=== PATIENT | male | born 1955 | race Caucasian/White ===

== ENCOUNTER 2018-06-30 17:40 | Observation (INO) ==
[2018-06-30] MEDS ORDERED: 0.9 % Sodium Chloride 1,000 ML IVC ONE (17:53)
--- NOTE | 2018-06-30 18:00 | Emergency Department Note ---
Disposition Clinical Impression: Influenza Community acquired pneumonia Qualifiers: Laterality: right Lung location: lower lobe of lung Qualified Code(s): J18.1 - Lobar pneumonia, unspecified organism Disposition: Admitted As Inpatient Condition: Fair Time of Disposition: 19:21 General Adult HPI - General Stated complaint: Body aches,chills,fever,cough,congestion Time Seen by Provider: 06/30/18 17:44 Source: patient, family Limitations: no limitations Nursing Notes Reviewed: Yes Vital Signs Reviewed: Yes - History of Present Illness HPI Narrative: 62yo male presents from home with girlfriend bedside for evaluation of a 3 day history of cough, CP with cough, myalgia, rigors, sweats, weakness. Fever at home was subjective to palpation. Cough productive with phlegm. 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 PMH: Remote esophageal cancer, hypothyroidism, atrial fibrillation status post ablation with no need for controlling medications or anticoagulant. Habits: Previous everyday smoker. Patient quit 2 weeks ago. ROS: Pos: as above Neg: nausea, vomiting, chest pain, palpitation, dyspnea, abdominal pain, diarrhea, constipation, dysuria Pain Scale: 0 - Related Data Allergies Allergy/AdvReac Type Severity Reaction Status Date / Time Penicillins Allergy Rash Verified 06/30/18 18:34 All systems ED: reviewed and negative except as stated. Review of Systems: As Per HPI Past Medical History - Past Medical History Medical history: Reports: cancer, coronary artery disease Psychiatric history: Reports: no psych history - Social History Smoking Status: Current some day smoker Smokeless Tobacco Status: Yes Alcohol use: Reports: none Drug use: Reports: none Physical Exam Vital Signs Reviewed General: Patient is alert, oriented, and in no acute distress. Head: atraumatic, normocephalic Eye: normal appearance, PERRL, EOMI, no scleral icterus, no conjunctival injection ENT: mucous membranes moist, normal external ear exam Neck: normal inspection, trachea midline, full ROM Chest: normal inspection, symmetric chest rise Respiratory: Good respiratory effort. Bilateral breath sounds are clear without wheezing, crackles, or rhonchi. Cardiovascular: Regular rate and rhythm. No clicks, rubs, gallops, or murmors. Normal heart sounds. Abdomen: Bowel sounds present normoactive. Abdomen is soft, nondistended, and nontender. No guarding or rebound. Musculoskeletal: Spontaneously moving all extremities. Skin: warm, dry, intact. Neuro: GCS 15. No focal neurologic deficits observed. Psych: Patient's affect is appropriate for situation. - General Limitations: no limitations General appearance: alert, in no apparent distress Course Course Narrative: Patient is tachypneic, tachycardic, and febrile on exam. Tylenol, fluids, chest x-ray, urinalysis, labs including lactate and blood cultures, EKG and troponin. EKG dated 06/30/2018 at 18:06 interpreted as sinus rhythm with rate of 92. W[place] 138, QRS 74, QTC 45. Normal axis. Nonspecific ST-T changes. No previous EKG for comparison. Chest x-ray read by radiology as no acute process. On my evaluation as well as my attendings, concern for right lower lobe versus right posterior lobe pneumonia. Given patient's constellation of symptoms and clinical presentation, will begin empiric treatment for community-acquired pneumonia. Serum hematology is unremarkable. Serum chemistries unremarkable. EKG shows no acute ischemic changes. Rapid influenza is positive. Even concern for community-acquired pneumonia, will cover with vancomycin and azithromycin to ensure empiric coverage for post viral streptococcal pneumonia. Discussed the above with the patient. He is agreeable to admission for his pneumonia and influenza. Discussed the above with the admitting hospitalist, Dr. Mckeon. He agrees to accept the patient for continued evaluation and management. Recommendation at this time is adding ceftriaxone; 2 g ceftriaxone IV ordered. Vital Signs Temperature 100.1 F H 06/30/18 17:44 Pulse Rate 103 06/30/18 17:44 Respiratory Rate 20 06/30/18 17:44 Blood Pressure 136/97 06/30/18 17:44 O2 Sat by Pulse Oximetry 96 06/30/18 17:44 Temperature 100.1 F H 06/30/18 17:44 Pulse Rate 79 06/30/18 18:33 Respiratory Rate 24 06/30/18 18:33 Blood Pressure 176/86 06/30/18 18:33 O2 Sat by Pulse Oximetry 99 06/30/18 18:33 Oxygen Delivery Oxygen Delivery Room Air Medical Decision Making - Lab Data Result diagrams: 06/30/18 18:09 06/30/18 18:09 Lab Results 06/30/18 06/30/18 06/30/18 Range/Units 18:09 18:09 18:12 WBC 6.7 (4.3-11.1) K/mcL RBC 5.43 (4.19-5.50) M/mcL Hgb 16.6 (12.9-16.9) g/dL Hct 50.5 H (37.5-50.1) % MCV 93.0 (83.0-100.0) fL MCH 30.6 (28.0-33.3) pg MCHC 32.9 (31.6-35.5) g/dL RDW 12.3 (11.5-14.5) % Plt Count 166 (140-400) K/mcL MPV 9.1 L (9.4-12.4) fL Immature Gran % 0.3 (0-4) % Seg Neutrophils % 79.2 % Lymphocytes % 9.9 % Monocytes % 9.8 % Eosinophils % 0.3 % Basophils % 0.5 % Neutrophils # 5.3 (1.6-8.9) K/mcL Lymphocytes # 0.7 (0.6-4.6) K/mcL Monocytes # 0.7 (0.0-1.3) K/mcL Eosinophils # 0.0 (0.0-0.6) K/mcL Basophils # 0.0 (0.0-0.2) K/mcL Sodium 136 (136-145) mEq/L Potassium 4.2 (3.5-5.1) mEq/L Chloride 101 (98-107) mEq/L Carbon Dioxide 26 (23-29) mEq/L BUN 18 (8-23) mg/dL Creatinine 1.21 (0.70-1.30) mg/dL Est GFR ( Amer) > 60 (> 60) Est GFR (Non-Af Amer) > 60 (> 60) BUN/Creatinine Ratio 15 (6-26) Glucose 94 (70-105) mg/dL Calculated Osmolality 284 (280-300) Lactic Acid 1.1 (0.5-2.2) mmol/L Calcium 9.7 (8.6-10.3) mg/dL Magnesium 1.8 (1.6-2.6) mg/dL Total Bilirubin 0.4 (0.3-1.0) mg/dL Direct Bilirubin 0.1 (0.0-0.2) mg/dL Indirect Bilirubin 0.3 (0.0-1.2) mg/dL AST 21 (13-39) Units/L ALT 19 (7-52) Units/L Alkaline Phosphatase 67 (34-104) Units/L Troponin I < 0.03 (< 0.04) ng/mL Serum Total Protein 7.3 (6.4-8.9) g/dL Albumin 4.5 (3.5-5.7) g/dL Globulin 2.8 (2.4-3.5) g/dL Albumin/Globulin Ratio 1.6 (1.1-2.2) Urine Color (Yellow) Urine Clarity (Clear) Urine pH (5.0-8.0) pH Units Ur Specific [place] (1.010-1.025) Urine Protein (Neg-Trace) mg/dL Urine Glucose (UA) (Normal) mg/dL Urine Ketones (Negative) mg/dL Urine Blood (Negative) Urine Nitrite (Negative) Urine Bilirubin (Negative) Urine Urobilinogen (Normal) mg/dL Ur Leukocyte Esterase (Negative) Ur Culture Indicated? (NO) 06/30/18 Range/Units 19:35 WBC (4.3-11.1) K/mcL RBC (4.19-5.50) M/mcL Hgb (12.9-16.9) g/dL Hct (37.5-50.1) % MCV (83.0-100.0) fL MCH (28.0-33.3) pg MCHC (31.6-35.5) g/dL RDW (11.5-14.5) % Plt Count (140-400) K/mcL MPV (9.4-12.4) fL Immature Gran % (0-4) % Seg Neutrophils % % Lymphocytes % % Monocytes % % Eosinophils % % Basophils % % Neutrophils # (1.6-8.9) K/mcL Lymphocytes # (0.6-4.6) K/mcL Monocytes # (0.0-1.3) K/mcL Eosinophils # (0.0-0.6) K/mcL Basophils # (0.0-0.2) K/mcL Sodium (136-145) mEq/L Potassium (3.5-5.1) mEq/L Chloride (98-107) mEq/L Carbon Dioxide (23-29) mEq/L BUN (8-23) mg/dL Creatinine (0.70-1.30) mg/dL Est GFR ( Amer) (> 60) Est GFR (Non-Af Amer) (> 60) BUN/Creatinine Ratio (6-26) Glucose (70-105) mg/dL Calculated Osmolality (280-300) Lactic Acid (0.5-2.2) mmol/L Calcium (8.6-10.3) mg/dL Magnesium (1.6-2.6) mg/dL Total Bilirubin (0.3-1.0) mg/dL Direct Bilirubin (0.0-0.2) mg/dL Indirect Bilirubin (0.0-1.2) mg/dL AST (13-39) Units/L ALT (7-52) Units/L Alkaline Phosphatase (34-104) Units/L Troponin I (< 0.04) ng/mL Serum Total Protein (6.4-8.9) g/dL Albumin (3.5-5.7) g/dL Globulin (2.4-3.5) g/dL Albumin/Globulin Ratio (1.1-2.2) Urine Color Yellow (Yellow) Urine Clarity Clear (Clear) Urine pH 5.5 (5.0-8.0) pH Units Ur Specific [place] 1.020 (1.010-1.025) Urine Protein Negative (Neg-Trace) mg/dL Urine Glucose (UA) Normal (Normal) mg/dL Urine Ketones 15 H (Negative) mg/dL Urine Blood Negative (Negative) Urine Nitrite Negative (Negative) Urine Bilirubin Negative (Negative) Urine Urobilinogen Normal (Normal) mg/dL Ur Leukocyte Esterase Negative (Negative) Ur Culture Indicated? NO (NO)
[2018-06-30 18:24] LABS: Basophils % 0.5 %; Eosinophils % 0.3 %; Hematocrit 50.5 % (37.5-50.1); Hemoglobin 16.6 g/dL (12.9-16.9); Immature Granulocytes % 0.3 % (0-4); Lymphocytes # 0.7 K/mcL (0.6-4.6); Lymphocytes % 9.9 %; Mean Corpuscular HGB Conc 32.9 g/dL (31.6-35.5); Mean Corpuscular Hemoglobin 30.6 pg (28.0-33.3); Mean Platelet Volume 9.1 fL (9.4-12.4); Monocytes # 0.7 K/mcL (0.0-1.3); Monocytes % 9.8 %; Neutrophils # 5.3 K/mcL (1.6-8.9); Platelet Count 166 K/mcL (140-400); Red Blood Count 5.43 M/mcL (4.19-5.50); Red Cell Distribution Width 12.3 % (11.5-14.5); Segmented Neutrophils % 79.2 %
[2018-06-30 18:46] LABS: Alanine Aminotransferase 19 Units/L (7-52); Albumin 4.5 g/dL (3.5-5.7); Albumin/Globulin Ratio 1.6 (1.1-2.2); Alkaline Phosphatase 67 Units/L (34-104); Aspartate Amino Transferase 21 Units/L (13-39); BUN/Creatinine Ratio 15 (6-26); Bilirubin,Direct 0.1 mg/dL (0.0-0.2); Bilirubin,Indirect 0.3 mg/dL (0.0-1.2); Bilirubin,Total 0.4 mg/dL (0.3-1.0); Blood Urea Nitrogen 18 mg/dL (8-23); Calcium 9.7 mg/dL (8.6-10.3); Carbon Dioxide 26 mEq/L (23-29); Chloride 101 mEq/L (98-107); Globulin 2.8 g/dL (2.4-3.5); Glucose 94 mg/dL (70-105); Magnesium 1.8 mg/dL (1.6-2.6); Osmolality,Calculated 284 (280-300); Potassium 4.2 mEq/L (3.5-5.1); Sodium 136 mEq/L (136-145); Total Protein 7.3 g/dL (6.4-8.9); Troponin I < 0.03 ng/mL (< 0.04); eGFR For Non-African Americans > 60 (> 60)
[2018-06-30] MEDS ORDERED: Azithromycin 500 MG in D5% in Water 250 ML IVPB ONE (19:16)
--- NOTE | 2018-06-30 19:27 | Emergency Department Note ---
Disposition Clinical Impression: Influenza Community acquired pneumonia Qualifiers: Laterality: right Lung location: lower lobe of lung Qualified Code(s): J18.1 - Lobar pneumonia, unspecified organism Disposition: Admitted As Inpatient Condition: Fair Referrals: Paulo Lora MD [Primary Care Provider] - General Adult HPI - General Chief complaint: ED Fever Stated complaint: Body aches,chills,fever,cough,congestion Time Seen by Provider: 06/30/18 17:44 Source: patient, family Limitations: no limitations - History of Present Illness Pain Scale: 0 - Related Data Allergies Allergy/AdvReac Type Severity Reaction Status Date / Time Penicillins Allergy Rash Verified 06/30/18 18:34 Past Medical History - Past Medical History Medical history: Reports: cancer, coronary artery disease Psychiatric history: Reports: no psych history - Social History Smoking Status: Current some day smoker Smokeless Tobacco Status: Yes Alcohol use: Reports: none Drug use: Reports: none Physical Exam - General Limitations: no limitations General appearance: alert, in no apparent distress Course Vital Signs Temperature 100.1 F H 06/30/18 17:44 Pulse Rate 103 06/30/18 17:44 Respiratory Rate 20 06/30/18 17:44 Blood Pressure 136/97 06/30/18 17:44 O2 Sat by Pulse Oximetry 96 06/30/18 17:44 Temperature 100.1 F H 06/30/18 17:44 Pulse Rate 79 06/30/18 18:33 Respiratory Rate 24 06/30/18 18:33 Blood Pressure 176/86 06/30/18 18:33 O2 Sat by Pulse Oximetry 99 06/30/18 18:33 Oxygen Delivery Oxygen Delivery Room Air Medical Decision Making - Lab Data Result diagrams: 06/30/18 18:09 06/30/18 18:09 Lab Results 06/30/18 06/30/18 06/30/18 Range/Units 18:09 18:09 18:12 WBC 6.7 (4.3-11.1) K/mcL RBC 5.43 (4.19-5.50) M/mcL Hgb 16.6 (12.9-16.9) g/dL Hct 50.5 H (37.5-50.1) % MCV 93.0 (83.0-100.0) fL MCH 30.6 (28.0-33.3) pg MCHC 32.9 (31.6-35.5) g/dL RDW 12.3 (11.5-14.5) % Plt Count 166 (140-400) K/mcL MPV 9.1 L (9.4-12.4) fL Immature Gran % 0.3 (0-4) % Seg Neutrophils % 79.2 % Lymphocytes % 9.9 % Monocytes % 9.8 % Eosinophils % 0.3 % Basophils % 0.5 % Neutrophils # 5.3 (1.6-8.9) K/mcL Lymphocytes # 0.7 (0.6-4.6) K/mcL Monocytes # 0.7 (0.0-1.3) K/mcL Eosinophils # 0.0 (0.0-0.6) K/mcL Basophils # 0.0 (0.0-0.2) K/mcL Sodium 136 (136-145) mEq/L Potassium 4.2 (3.5-5.1) mEq/L Chloride 101 (98-107) mEq/L Carbon Dioxide 26 (23-29) mEq/L BUN 18 (8-23) mg/dL Creatinine 1.21 (0.70-1.30) mg/dL Est GFR ( Amer) > 60 (> 60) Est GFR (Non-Af Amer) > 60 (> 60) BUN/Creatinine Ratio 15 (6-26) Glucose 94 (70-105) mg/dL Calculated Osmolality 284 (280-300) Lactic Acid 1.1 (0.5-2.2) mmol/L Calcium 9.7 (8.6-10.3) mg/dL Magnesium 1.8 (1.6-2.6) mg/dL Total Bilirubin 0.4 (0.3-1.0) mg/dL Direct Bilirubin 0.1 (0.0-0.2) mg/dL Indirect Bilirubin 0.3 (0.0-1.2) mg/dL AST 21 (13-39) Units/L ALT 19 (7-52) Units/L Alkaline Phosphatase 67 (34-104) Units/L Troponin I < 0.03 (< 0.04) ng/mL Serum Total Protein 7.3 (6.4-8.9) g/dL Albumin 4.5 (3.5-5.7) g/dL Globulin 2.8 (2.4-3.5) g/dL Albumin/Globulin Ratio 1.6 (1.1-2.2) Attestation Statement - Attestation Attestation: I examined this patient and my medical decision-making was reviewed with the Resident Physician. I agree with the documented findings, disposition and treat ment plan as described except to the extent set forth below. 62 year old male presents to the ED with complaints of fever chills and cough and appears to be influenza A (+). Patinet CXR is read as negtive, however, on my personal read there are appears to be a consolidation in the RLL. With the consideration that he just stopped smoking about 2 weeks ago and has poor lung function because of it. He is not hypoxic although presented with tachycardia and a temp of 100.1F. We will admit to medicine.
[2018-06-30] MEDS ORDERED: cefTRIAXone 2,000 MG in 0.9 % Sodium Chloride Mini Bag 100 ML IVPB ONE (19:35)
[2018-06-30 19:45] LABS: Bilirubin,Urine Negative (Negative); Blood,Urine Negative (Negative); Clarity,Urine Clear (Clear); Color,Urine Yellow (Yellow); Glucose,Urine (UA) Normal (Normal); Ketones,Urine 15 mg/dL (Negative); Leukocyte Esterase,Urine Negative (Negative); Nitrite,Urine Negative (Negative); PH,Urine 5.5 pH Units (5.0-8.0); Protein,Urine Negative (Neg-Trace); Urobilinogen,Urine Normal (Normal)
[2018-06-30] MEDS ORDERED: Naloxone 0.4 MG/ML INJ IVP PRN (21:33)
--- NOTE | 2018-06-30 21:46 | Internal Med History&Physical ---
<Angela Arriola - Last Filed: 07/01/18 02:36> Date of Encounter: 07/01/18 Time of Encounter: 21:40 Internal Medicine - H&P: HPI Chief complaint: Cough Admitted From: Emergency Dept Plans for Post Hospital Care: Home History of present illness: Mr. Gates is a 62 year old male presenting from home to ED with complaint of productive cough, fever, chills, arthralgia, myalgia for 3 days. He has a past medical history of hypothyroidism on [place] Thyroid 180 mg qd, esophageal cancer, recent smoking history, he quit 1-1/2 weeks ago and is currently on Wellbutrin 150 mg daily, esophageal cancer, atrial fibrillation status post ablation and is not requiring rate control or anticoagulation. 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 He admits to shortness of breath with exertion however not at rest, as well as feeling feverish, diaphoretic, arthralgia, myalgia and he has chronic bilateral lower extremity paresthesias secondary to chemotherapy and radiation for esophageal cancer. He denies any nausea, vomiting, headache, lightheadedness, vision or hearing changes, ear pain, dysphasia, pharyngitis, chest pain, pleuritic chest pain, abdominal pain, diarrhea, constipation, hematochezia, melena, dysuria, hematuria, calf pain, lower extremity edema. On presentation, SIRS criteria met include being febrile at 100.1, tachycardic at 103 and tachypneic at 20. He was satting 96% on room air. He does not have an elevated white count, in fact his labs are all within normal limits besides ketones in the urine. LFTs within normal limits, troponins were negative. Clinically he does appear to have a right lower lobe pneumonia. Chest XR suggestive of right pleural effusion. Patient also tested positive for influenza a. He is status post 1 L normal saline, 75 mg Tamiflu, 2 g ceftriaxone, 500 mg azithromycin, and vancomycin. He has also had 1 g of Tylenol. Past Med Surg Social Fam HX - Past Medical History Medical history: atrial fibrillation, cancer, thyroid disease Psychiatric history: no psych history - Past Surgical History Additional surgical history: cardac ablasion - Social History Smoking Status: Former smoker Smokeless Tobacco Status: Yes Alcohol use: none Drug use: none Occupational status: employed Current living situation: Home - Independent Activity Level: Independent ambulation Recent Out of Country Travel Within the Last 8 Weeks: No Exposure or Possible Exposure to Illness During Travel: No - Family History Father Age: 59 Living Status: Hx Family Cancer: Yes (bone) Daughter Age: 32 Living Status: Hx Family Cardiac Disorders: Yes (CHF) Internal Medicine - H&P: Meds BuPROPion SR (12 HR) [Wellbutrin SR] 150 mg PO DAILY 06/30/18 [History] Thyroid,Pork [[place] Thyroid] 180 mg PO DAILY 06/30/18 [History] Allergy/AdvReac Type Severity Reaction Status Date / Time Penicillins Allergy Rash Verified 06/30/18 18:34 All Systems PM: A 10-system review of systems was performed and is negative for pertinent findings except as documented above in the HPI. - Constitutional Constitutional: chills, excessive sweating, fatigue, fever(s) - EENT Eyes: no blurry vision Ears: no ear pain Nose, mouth and throat: no dysphagia, no nasal congestion, no sore throat - Cardiovascular Cardiovascular ROS IM: diaphoresis, dyspnea on exertion, no chest pain, no dyspnea, no edema, no irregular heart rhythm - Respiratory Respiratory: cough, dyspnea on exertion, chest congestion, pain with cough, no dyspnea, no hemoptysis, no pain on inspiration - Gastrointestinal Gastrointestinal: no abdominal pain, no change in bowel habits, no constipation, no diarrhea, no heartburn, no hematochezia, no melena, no nausea, no vomiting - Genitourinary Genitourinary ROS male: no dysuria - Musculoskeletal Musculoskeletal ROS IM: arthralgias, myalgias, tingling - Neurological Neurological ROS: paresthesias, no dizziness, no focal weakness, no headache(s) - Psychiatric Psychiatric: no anxiety, no depression - Endocrine Endocrine IM: fatigue - Constitutional Vitals: Temp Pulse Resp BP Pulse Ox 99.8 F H 85 16 133/75 93 06/30/18 21:31 06/30/18 21:31 06/30/18 21:31 06/30/18 21:31 06/30/18 21:31 Exam: Gen.: Vitals noted. No acute distress. AAOx3, resting comfortably in bed, diaphoretic. HEENT: PERRL/EOMI, tympanic membranes clear, oropharynx clear, Normocephalic, atraumatic, MMM Neck: Supple. No adenopathy. Trachea midline. No cervical midline tenderness. Cardiac: RRR, no murmur, +S1/S2, No BLE edema, no JVD, radial and dorsal pedis pulses 3+ and symmetrical, normal capillary refill. Pulmonary: Diffuse expiratory wheezes bilaterally, no rales or rhonchi, equal chest expansion, unlabored breathing Abdomen: soft, nontender, BS noted, no guarding, no palpable HSM Back: Nontender throughout. Skin: warm and dry, no visible lesions. MSK: ROM intact, no joint swelling noted, gait no assessed while in bed. Non tender calf or clubbing Neuro: A&Ox3, moves all extremities, no focal deficits, sensation intact, CN2-12 intact Psych: Appropriate mood and behavior, AOx3 Internal Med - H&P Results - Labs CBC & Chem 7: 07/01/18 00:09 07/01/18 00:09 Labs: Short CBC 06/30/18 Range/Units 18:09 WBC 6.7 (4.3-11.1) K/mcL Hgb 16.6 (12.9-16.9) g/dL Hct 50.5 H (37.5-50.1) % Plt Count 166 (140-400) K/mcL Neutrophils # 5.3 (1.6-8.9) K/mcL BMP 06/30/18 18:09 Sodium 136 Potassium 4.2 Chloride 101 Carbon Dioxide 26 BUN 18 Creatinine 1.21 Glucose 94 Calcium 9.7 Cardiac Enzymes 06/30/18 Range/Units 18:09 Troponin I < 0.03 (< 0.04) ng/mL Liver Function 06/30/18 Range/Units 18:09 Total Bilirubin 0.4 (0.3-1.0) mg/dL Direct Bilirubin 0.1 (0.0-0.2) mg/dL AST 21 (13-39) Units/L ALT 19 (7-52) Units/L Alkaline Phosphatase 67 (34-104) Units/L Albumin 4.5 (3.5-5.7) g/dL Urine 06/30/18 Range/Units 19:35 Urine Color Yellow (Yellow) Urine Clarity Clear (Clear) Urine pH 5.5 (5.0-8.0) pH Units Ur Specific [place] 1.020 (1.010-1.025) Urine Protein Negative (Neg-Trace) mg/dL Urine Glucose (UA) Normal (Normal) mg/dL - Assessment and Plan (1) Influenza Current Visit: Yes Status: Acute Assessment and plan: Patient presented with 3 days of cough, fevers, chills myalgias, arthralgias Positive for influenza A Continue Tamiflu for 5 days total Duoneb q6 and albuterol q2 PRN Solumedrol 80 mg q8 Respiratory support as needed. (2) Community acquired pneumonia Current Visit: Yes Status: Acute Assessment and plan: Patient presented with productive cough, fever, chills, myalgias, arthralgias Chest x-ray read as negative however clinical suspicion for RLL pneumonia, also appears to have a right pleural effusion Possible COPD exacerbation, significant smoking history but no prior pulmonary function testing or formal diagnosis Continue rocephin and azithromycin for antibiotic coverage Continue pulse ox monitoring Recheck CBC and BMP in the morning Qualifiers: Laterality: right Lung location: lower lobe of lung Qualified Code(s): J18.1 - Lobar pneumonia, unspecified organism (3) Pleural effusion Current Visit: Yes Status: Suspected Assessment and plan: Suspect pleural effusion on right Most likely parapneumonic however patient does have history of malignancy Further evaluation with right decubitus chest XR and consider CT chest (4) Hypothyroidism Current Visit: Yes Status: Acute Assessment and plan: History of hypothyroidism Continue home med [place] Thyroid 180 mg daily Qualifiers: Hypothyroidism type: unspecified Qualified Code(s): E03.9 - Hypothyroidism, unspecified (5) Tobacco abuse Current Visit: Yes Status: Acute Assessment and plan: History of tobacco abuse Quit smoking 1.5 weeks ago Continue Wellbutrin 150 mg daily Currently using chewing tobacco (6) DVT prophylaxis Current Visit: Yes Status: Acute Assessment and plan: Subcutaneous heparin - Time Spent With Patient Total time spent is greater than 50% in coordination of care (as documented) at patient's floor/unit and/or counseling patient: Greater than 35 minutes <Gary Mckeon - Last Filed: 07/01/18 04:27> Date of Encounter: 07/01/18 Time of Encounter: 02:30 - Constitutional Constitutional: chills, fever(s), no night sweats - EENT Ears: no ear pain, no tinnitus Nose, mouth and throat: no nasal congestion, no sinus pressure, no sore throat - Cardiovascular Cardiovascular ROS IM: dyspnea on exertion, no orthopnea, no paroxysmal nocturnal dyspnea, no syncope - Respiratory Respiratory: cough, wheezing, chest congestion - Gastrointestinal Gastrointestinal: nausea, no diarrhea, no vomiting - Musculoskeletal Musculoskeletal ROS IM: arthralgias, myalgias, no back pain - Integumentary Integumentary IM: no rash, no jaundice - Neurological Neurological ROS: no dizziness, no focal weakness, no frequent falls, no headache(s) - Psychiatric Psychiatric: no anxiety, no depression - Endocrine Endocrine IM: no polydipsia, no polyuria - Allergic/Immunologic Allergic/Immunologic: no GI upset with certain foods - Constitutional Vitals: Temp Pulse Resp BP Pulse Ox 100.8 F H 85 16 130/71 91 07/01/18 03:17 07/01/18 03:17 07/01/18 03:54 07/01/18 03:07/01/18 03:54 General appearance: Present: cooperative, mild distress, A&O X 3, pleasant - Head Head exam: Present: normal inspection - Eye Eye exam: Present: EOMI. Absent: scleral icterus - ENT ENT exam: Present: mucous membranes dry, normal exam, normal oropharynx - Neck Neck exam general surgery: Present: full ROM, supple, trachea midline. Absent: tenderness, nuchal rigidity, thyromegaly - Respiratory Respiratory exam: Present: decreased breath sounds (right base), prolonged expiratory phase, respiratory distress (mild), rhonchi, wheezes. Absent: chest wall tenderness, rales - Cardiovascular Cardiovascular exam: Present: +S1, +S2. Absent: diastolic murmur, systolic murmur, tachycardia - GI/Abdominal GI/Abdominal exam: Present: normal bowel sounds, soft. Absent: guarding, hepatomegaly, mass, rebound, splenomegaly, tenderness - Extremities Exam Extremities exam: Present: normal capillary refill, warm, radial pulses palpable and symmetrical. Absent: calf tenderness, joint swelling, pedal edema, tenderness - Back Exam Back exam: Absent: CVA tenderness (L), CVA tenderness (R) - Neurological Exam Neurological exam: Present: alert, CN II-XII intact, oriented X3, no focal deficits, strengths equal and symetr throughout - Psychiatric Psychiatric exam: Present: normal affect, normal mood - Skin Skin exam: Present: dry, intact, warm Internal Med - H&P Results - Labs CBC & Chem 7: 07/01/18 00:09 07/01/18 00:09 Labs: Short CBC 06/30/18 07/01/18 Range/Units 18:09 00:09 WBC 6.7 5.4 (4.3-11.1) K/mcL Hgb 16.6 13.9 D (12.9-16.9) g/dL Hct 50.5 H 42.3 (37.5-50.1) % Plt Count 166 129 L (140-400) K/mcL Neutrophils # 5.3 4.2 (1.6-8.9) K/mcL BMP 06/30/18 07/01/18 18:09 00:09 Sodium 136 136 Potassium 4.2 3.8 Chloride 101 105 Carbon Dioxide 26 22 L BUN 18 18 Creatinine 1.21 1.16 Glucose 94 93 Calcium 9.7 8.2 L Cardiac Enzymes 06/30/18 Range/Units 18:09 Troponin I < 0.03 (< 0.04) ng/mL Liver Function 06/30/18 Range/Units 18:09 Total Bilirubin 0.4 (0.3-1.0) mg/dL Direct Bilirubin 0.1 (0.0-0.2) mg/dL AST 21 (13-39) Units/L ALT 19 (7-52) Units/L Alkaline Phosphatase 67 (34-104) Units/L Albumin 4.5 (3.5-5.7) g/dL Urine 06/30/18 Range/Units 19:35 Urine Color Yellow (Yellow) Urine Clarity Clear (Clear) Urine pH 5.5 (5.0-8.0) pH Units Ur Specific [place] 1.020 (1.010-1.025) Urine Protein Negative (Neg-Trace) mg/dL Urine Glucose (UA) Normal (Normal) mg/dL - Time Spent With Patient Total time spent is greater than 50% in coordination of care (as documented) at patient's floor/unit and/or counseling patient: - Attending Attestation I discussed the patient [place], PMH, ROS, lab data, imaging data, and exam findings with Dr. Arriola. I then saw and examined patient independently as well. Patient appears ill but nontoxic. He appears as though he has "the flu". I reviewed the x-ray imaging, and I suspect he might have a small right parapneumonic effusion. This may be chronic effusion, however, as well. We do not have any old records and/or imaging. I agree with the Tamiflu and empiric antibiotics for suspected pneumonia. Meanwhile, we will obtain a decubitus x- ray film and consider chest CT as well to evaluate for possible need for drainage of the pleural effusion. Given his history of esophageal cancer, I recommend he follow up closely with his PCP and oncologist. At this time, I suspect this is all infectious and not cancerous. However, close follow-up is recommended. I recommend he follow-up with his PCP, Dr. Pete Lora, and I will forward a copy of this note to Dr. Lora. Other than my comments above and documented exam findings, I agree with Dr. Arriola's assessment and plan.
[2018-07-01] MEDS: 0.9 % Sodium Chloride 1,000 ML IVC SCH ×2 (00:15→07:44)
[2018-07-01 00:21] LABS: Basophils % 0.4 %; Eosinophils % 0.2 %; Hematocrit 42.3 % (37.5-50.1); Immature Granulocytes % 0.4 % (0-4); Lymphocytes # 0.7 K/mcL (0.6-4.6); Lymphocytes % 12.8 %; Mean Corpuscular HGB Conc 32.9 g/dL (31.6-35.5); Mean Corpuscular Hemoglobin 30.6 pg (28.0-33.3); Mean Corpuscular Volume 93.2 fL (83.0-100.0); Mean Platelet Volume 9.2 fL (9.4-12.4); Monocytes # 0.4 K/mcL (0.0-1.3); Monocytes % 8.1 %; Neutrophils # 4.2 K/mcL (1.6-8.9); Platelet Count 129 K/mcL (140-400); Red Blood Count 4.54 M/mcL (4.19-5.50); Segmented Neutrophils % 78.1 %
[2018-07-01 00:22] LABS: Hemoglobin 13.9 g/dL (12.9-16.9)
[2018-07-01 00:37] LABS: BUN/Creatinine Ratio 16 (6-26); Blood Urea Nitrogen 18 mg/dL (8-23); Calcium 8.2 mg/dL (8.6-10.3); Carbon Dioxide 22 mEq/L (23-29); Chloride 105 mEq/L (98-107); Glucose 93 mg/dL (70-105); Osmolality,Calculated 284 (280-300); Potassium 3.8 mEq/L (3.5-5.1); Sodium 136 mEq/L (136-145); eGFR For Non-African Americans > 60 (> 60)
[2018-07-01] MEDS ORDERED: Albuterol 2.5 MG/3 ML NEBULIZER IH PRN (02:11)
[2018-07-01] MEDS ORDERED: Acetaminophen 325 MG TABLET PO PRN ×2 (03:26→03:27)
[2018-07-01] MEDS: Ipratropium/Albuterol Neb 3 ML IH SCH ×3 (03:54→16:29)
[2018-07-01] MEDS ORDERED: *HR* Heparin 5,000 UNIT/ML VIAL SQ SCH (06:00)
[2018-07-01] MEDS ORDERED: Thyroid (Amour) 30 MG TABLET PO SCH (06:30)
[2018-07-01] MEDS ORDERED: methylPREDNISolone 125 MG/2 ML VIAL IVP SCH (08:00)
--- NOTE | 2018-07-01 08:29 | Internal Med Progress Note ---
Hospitalist Progress Note - Encounter Date of Encounter: 07/01/18 - Exam Vitals: Temp Pulse Resp BP Pulse Ox 98.4 F 77 17 126/70 94 07/01/18 06:49 07/01/18 06:49 07/01/18 06:49 07/01/18 06:49 07/01/18 06:49 - Time Spent with Patient Total time spent is greater than 50% in coordination of care (as documented) at patient's floor/unit and/or counseling patient: Internal Medicine: Result - Labs CBC & Chem 7: 07/01/18 00:09 07/01/18 00:09 Labs: Short CBC 06/30/18 07/01/18 Range/Units 18:09 00:09 WBC 6.7 5.4 (4.3-11.1) K/mcL Hgb 16.6 13.9 D (12.9-16.9) g/dL Hct 50.5 H 42.3 (37.5-50.1) % Plt Count 166 129 L (140-400) K/mcL Neutrophils # 5.3 4.2 (1.6-8.9) K/mcL BMP 06/30/18 07/01/18 18:09 00:09 Sodium 136 136 Potassium 4.2 3.8 Chloride 101 105 Carbon Dioxide 26 22 L BUN 18 18 Creatinine 1.21 1.16 Glucose 94 93 Calcium 9.7 8.2 L Cardiac Enzymes 06/30/18 Range/Units 18:09 Troponin I < 0.03 (< 0.04) ng/mL Liver Function 06/30/18 Range/Units 18:09 Total Bilirubin 0.4 (0.3-1.0) mg/dL Direct Bilirubin 0.1 (0.0-0.2) mg/dL AST 21 (13-39) Units/L ALT 19 (7-52) Units/L Alkaline Phosphatase 67 (34-104) Units/L Albumin 4.5 (3.5-5.7) g/dL Urine 06/30/18 Range/Units 19:35 Urine Color Yellow (Yellow) Urine Clarity Clear (Clear) Urine pH 5.5 (5.0-8.0) pH Units Ur Specific [place] 1.020 (1.010-1.025) Urine Protein Negative (Neg-Trace) mg/dL Urine Glucose (UA) Normal (Normal) mg/dL - Impressions Impressions Chest X-Ray 07/01/18 06:00 IMPRESSION: Trace to small right pleural effusion, suspected to be subpulmonic in location on the comparison radiograph. D/ / Kranthi Nelson MD / rKanthi Nelson MD Interpreting Provider: Kranthi Nelson MD Consult Discharge Plan - Plan Referrals: Paulo Lora MD [Primary Care Provider] -
[2018-07-01] MEDS ORDERED: BuPROPion XL (24 HR) 150 MG TABLET PO SCH (09:00)
[2018-07-01] MEDS ORDERED: BuPROPion SR (12 HR) 150 MG TABLET PO SCH (09:00)
[2018-07-01] MEDS ORDERED: cefTRIAXone 1,000 MG in Water for inj. (sterile) 20 ML 10 ML IVP SCH (09:00)
[2018-07-01 11:06] VITALS: BP 106/70
--- NOTE | 2018-07-01 11:58 | Discharge Summary ---
<Kranthi Aviles - Last Filed: 07/01/18 13:54> - NOTES TO OUTPATIENT PROVIDER Notes to Outpatient Provider: Mr. Gates presented with productive cough, fever, chills, arthralgias, myalgias for 3 days. On presentation he did test positive for influenza A. His chest x-ray was essentially negative. Do not suspect bacterial pneumonia. Treated with oral Tamiflu, steroids, as needed albuterol inhaler. Suggest outpatient follow-up in 3-5 days. Orders not resulted at time of discharge: Pending orders 06/30/18 18:12 Culture,Blood [BC] Stat 06/30/18 22:21 Culture,Sputum with Gram Stain [RM] Routine Culture,Urine [RM] Routine Date of Encounter: 07/01/18 Time of Encounter: 08:40 - Discharge Diagnosis (1) Influenza Priority: Primary Status: Acute (2) Hypothyroidism Priority: Secondary Status: Chronic Qualifiers: Hypothyroidism type: unspecified Qualified Code(s): E03.9 - Hypothyroidism, unspecified (3) Tobacco abuse Priority: Secondary Status: Chronic Hospital course: Mr. Gates is a 62 year old male with history of atrial fibrillation, esophageal cancer in distant history, hypothyroidism who presented to the hospital with 3 day history of fever, chills, cough with sputum production, arthralgia and myalgia. He does have significant smoking history for which she says that he quit approximately 1-2 weeks ago. His initial chest x-ray was largely unremarkable aside from an elevated right hemidiaphragm, however he did have borderline fever and tachycardia. The patient did receive some fluids and there was a repeat chest x-ray that initially there was some concern for pneumonia and possibly right pleural effusion, however upon reexamination it does not appear that these are major concerns. Blood cultures were taken and the patient did have a flu swab which was positive for influenza A. The patient did receive Tamiflu as well as empiric antibiotics and steroids and improved substantially overnight. He never required any supplemental oxygen. We also did give the patient bronchodilators and inhaled corticosteroids. We are not highly suspicious of underlying bacterial pneumonia in this patient given largely unremarkable CXR and symptom set/timing. We will discharge the patient on Tamiflu, a short course of prednisone, and with an albuterol inhaler. The patient should follow-up with his primary care in 3-5 days. He is advised to return to the ED for worsening shortness of breath, fever, chills, altered mental status. Discharge discussed with: patient, family, nurse, social work, case management Time spent discussing smoking cessation with patient: 3 to 10 minutes - Time Spent with Patient Total time spent providing and/or coordinating discharge services: Time spent: Greater than 30 minutes - Discharge Medications Prescriptions: New Oseltamivir [Tamiflu] 75 mg PO BID 4 Days #8 capsule predniSONE [PredniSONE] 40 mg PO DAILY #4 tablet Albuterol Sulfate [Ventolin Hfa] 1 - 2 puff IH Q4H PRN #1 [email or web address] PRN Reason: Shortness Of Breath Continue BuPROPion SR (12 HR) [Wellbutrin SR] 150 mg PO DAILY Thyroid,Pork [[place] Thyroid] 180 mg PO DAILY Home Medications: BuPROPion SR (12 HR) [Wellbutrin SR] 150 mg PO DAILY 06/30/18 [History] Thyroid,Pork [[place] Thyroid] 180 mg PO DAILY 06/30/18 [History] Albuterol Sulfate [Ventolin Hfa] 1 - 2 puff IH Q4H PRN #1 hfa.[email or web address] 07/01/18 [Rx] Oseltamivir [Tamiflu] 75 mg PO BID 4 Days #8 capsule 07/01/18 [Rx] predniSONE [PredniSONE] 40 mg PO DAILY #4 tablet 07/01/18 [Rx] Allergies/Adverse Reactions: Allergy/AdvReac Type Severity Reaction Status Date / Time Penicillins Allergy Rash Verified 06/30/18 18:34 Date of admission: 06/30/18 19:55 Primary care physician: Paulo Lora MD Consults: 07/01/18 09:03 Consult to Nurse Navigator [CONS] Routine Comment: PNEUMONIA Discharging clinician: Kranthi Aviles Anticipated date of discharge: 07/01/18 - Constitutional Vitals: Temp Pulse Resp BP Pulse Ox 98.5 F 85 17 106/70 92 07/01/18 11:04 07/01/18 11:04 07/01/18 11:04 07/01/18 11:04 07/01/18 11:04 General appearance: Present: cooperative, mild distress, A&O X 3, pleasant Exam: Gen: Vitals noted. No acute distress. Eyes: anicteric sclerae, moist conjunctivae; no lid-lag HENT: Atraumatic; oropharynx clear with moist mucous membranes and no mucosal ulcerations Neck: Trachea midline Cardiac: RRR, no murmur, +S1/S2 Pulmonary: Coarse to auscultation bilaterally with superimposed wheezing however generally mild, equal chest expansion Abdomen: soft, nontender, no guarding. No masses or hepatosplenomegaly MSK: ROM intact, no joint swelling noted Extremities: no BLE edema, nontender calf, no cyanosis or clubbing Skin: Normal temperature, turgor and texture; no rash, ulcers or subcutaneous nodules Neuro: moves all extremities, no focal deficits. Psych: Appropriate mood and behavior. A&Ox3 - Patient Status Disposition: Home, Self-Care Condition: Fair Functional capacity at discharge: independent ambulation Overall status at discharge: patient is back to baseline - Discharge Instructions Instructions: Viral Pneumonia (DC) Follow Up With: Paulo Lora MD [Primary Care Provider] - 07/08/18 8:15 am Forms: ED Satisfaction Letter Additional Instructions: Follow-up appointments: If there is not an appointment listed below, please call your physician and schedule a follow-up appointment. If you have congestive heart failure and your symptoms return, make an appointment with your physician. Medication List: Carry an up to date list of medications you are taking at all time. We have given you an updated medication list including any new medications that you have been prescribed. Please provide that list to your primary provider Symptoms: If your condition changes or you experience any of the following symptoms, notify your physician immediately: Unusual or worsening pain, fever, persistent nausea and vomiting, bleeding, increase in swelling (especially in your legs), sudden weight gain, extreme dizziness, chest pain, increased drainage or redness from a wound or incision. Go to the emergency department if you experience a problem with breathing. Weights: If you have a history of swelling or shortness of breath, weigh yourself daily and notify your physician if you have a weight gain of two or more pounds in one day or 5 or more pounds in a week. If you experience any of the warning signs for stroke: Sudden numbness or weakness of the face, arm or leg; especially on one side of the body, sudden confusion, trouble speaking or understanding, sudden trouble seeing in one or both eyes, sudden trouble walking, dizziness, loss of balance or coordination, sudden sever headache with no cause; Call 911 or go to the emergency room. Stroke is a medical emergency. Some risk factors for stroke: Age, cigarette smoking, diabetes, excessive alcohol consumption, family history, high blood pressure, overweight, physical inactivity, prior stroke, heart attack, diagnosis of carotid artery stenosis or other artery disease. If you smoke, STOP: Smoking or tobacco use significantly increases your risk of heart and lung disease. Your chance of disease greatly increases if you continue to smoke. For more information, call the [employer] quit line for smoking cessation 7-868-NLXY-NOW ( ) - Diet and Activity Activity: increase activity as tolerated Diet: advance to your usual diet <Elvis Burger - Last Filed: 07/01/18 15:37> Orders not resulted at time of discharge: Pending orders 06/30/18 18:12 Culture,Blood [BC] Stat 06/30/18 22:21 Culture,Sputum with Gram Stain [RM] Routine Culture,Urine [RM] Routine Date of Encounter: 07/01/18 Date of admission: 06/30/18 19:55 Primary care physician: Paulo Lora MD Consults: 07/01/18 09:03 Consult to Nurse Navigator [CONS] Routine Comment: PNEUMONIA - Attending Attestation Patient seen and examined. I agree with the discharge plan as documented above by the resident. In summary, this is a very typical acute influenza A infection without any evidence of complication. Pt stable on room air, maintaining PO, and CXR unremarkable. Admit and d/c on same day >8h apart.
--- NOTE | 2018-07-01 16:44 | Electrocardiograph Report ---
[place] [id number] Test Date: 2018-06-30 Pat Name: Walker Gates Department: [id number] Room: 3B Gender: M Station Manager: : [id number] Requested By: Flaco Bruno Order Number: [id number] Reading MD: Brenda Moreira Measurements Intervals [place] Rate: 92 P: 60 MN: 138 QRS: 65 QRSD: 74 T: 54 QT: 327 QTc: 405 Interpretive Statements Sinus rhythm Electronically Signed On 07-01-2018 16:42:52 EDT by Brenda Moreira
[2018-07-01] MEDS ORDERED: Azithromycin 250 MG in D5% in Water 250 ML IVPB SCH (21:00)
== END 2018-07-01 16:52 | disposition home or self-care (01) ==
LOC: 3BNU 17:40 → EMEROOARM 17:40 → SUATTDRO 19:55 → 3BNU 21:20
PROVIDERS: ADMIT Pediatrics; ATTEND Internal Medicine